=== PATIENT | female | born 1955 | race Caucasian/White ===

== ENCOUNTER 2020-10-23 16:47 | Inpatient (IN) | payer MEDICARE, OTHER ==
[~2020-10-23] VITALS: Ht 157.5 cm; Wt 49.4 kg
[2020-10-23 19:55] VITALS: BP 154/90
--- NOTE | 2020-10-23 19:55 | NUR ---
GPS RN-ADMISSION NOTES: ADMITTED A 65-YR OLD FEMALE, FROM [facility], ADMITTED ON 5150 FOR DTS. PER HOLD, PT APPEARED TEARFUL WHEN DISCUSSING THE ATTEMPT TO END HER LIFE. PT STATED, SHE INTENTIONALLY JUMPED INTO THE OCEAN WITH THE DESIRE TO END HER LIFE. PT STATED SHE IS AT RISK OF BECOMING HOMELESS AND LOSING HER MEDICAL. PATIENT REPORTEDLY FELT HOPELESS AND NO LONGER WANTED TO LIVE. UPON FACE TO FACE ASSESSMENT, PATIENT IS A/OX2-3, DEPRESSED, COOPERATIVE AND GUARDED. PT WAS ADVISED OF HER HOLD. PT'S RIGHTS HANDBOOK AND A GUIDE TO PRESCRIPTION MEDICATIONS GIVEN. IN NO APPARENT DISTRESS NOTED. BELONGINGS WERE INVENTORIED AND CHECKED FOR CONTRABAND. PT. IS UNDER THE PSYCHIATRIC CARE OF DR. SAAB ORDERS OBTAINED, AND UNDER THE MEDICAL CARE OF FRANCISCO J HERRERA. PT. REFUSED PNEUMONIA VACCINE WHEN OFFERED. PER PT. RECEIVED FLU VACCINE BUT FORGOT WHEN. SKIN BODY ASSESSMENT DONE. SKIN IS INTACT. DENIES PAIN/ DISCOMFORT AT THIS TIME. SAFETY PRECAUTIONS IN PLACE. BED LOCKED AND IN LOWEST POSITION. SIDE RAILS UP X2. WILL CONTINUE TO MONITOR Q15 MINS ROUNDS FOR SAFETY AND BEHAVIOR.
[2020-10-23] MEDS ORDERED: MAG HYDROX/AL HYDROX/SIMETH 30 ML UDC PO PRN (20:30)
[2020-10-23] MEDS ORDERED: BLOOD SUGAR DIAGNOSTIC 1 EACH STRIP IN ONE (20:30)
[2020-10-23 21:15] VITALS: BP 154/90
[2020-10-23] MEDS: ACETAMINOPHEN 325 MG TABLET PO PRN (21:26)
[2020-10-23] MEDS: TEMAZEPAM 7.5 MG CAPSULE PO PRN (21:41)
--- NOTE | 2020-10-23 21:41 | NUR ---
GPS-RN NOTES: INSOMNIA PATIENT C/O INABILITY TO SLEEP. ADMINISTERED RESTORIL 15MG PO ORDERED. WILL CONTINUE TO MONITOR.
[2020-10-23] MEDS ORDERED: INSU100V7 SQ (21:53)
[2020-10-23] MEDS ORDERED: INSU100V SQ (21:53)
[2020-10-23] MEDS ORDERED: INSU100I35 SQ (21:53)
[2020-10-23] MEDS ORDERED: TRAZ-252 PO (21:53)
[2020-10-23] MEDS ORDERED: METF-440 PO (21:53)
[2020-10-23] MEDS ORDERED: METFORMIN 500 MG TABLET PO SCH (22:30)
[2020-10-23] MEDS ORDERED: DEXTROSE 50%-WATER 50 ML DISP.SYRIN IV PRN (22:30)
[2020-10-23] MEDS: *INSULIN REGULAR(HUMULIN R)HUM 100 UNIT/ML VIAL SQ PRN (22:31)
[2020-10-24] MEDS: ACETAMINOPHEN 325 MG TABLET PO PRN (07:57)
[2020-10-24 08:00] VITALS: BP 134/72
[2020-10-24] MEDS: INSULIN ASPART/LISPRO 100 UNIT/ML CARTRIDGE SQ SCH ×3 (08:00→18:12)
[2020-10-24] MEDS: BLOOD SUGAR DIAGNOSTIC 1 EACH STRIP IN SCH ×4 (08:11→22:20)
[2020-10-24 08:55] LABS: ALBUMIN 3.4 g/dL (3.4-5.0); BILIRUBIN,TOTAL 0.3 mg/dL (0.2-1.0); CALCIUM, SERUM 9.4 mg/dL (8.5-10.1); CREATININE 0.7 mg/dL (0.6-1.3); POTASSIUM 4.1 mmol/L (3.5-5.1); TOTAL PROTEIN, SERUM 7.6 g/dL (6.4-8.2)
[2020-10-24] MEDS: INSULIN REGULAR, HUMAN 100 UNIT/ML 3 ML VIAL SQ PRN (13:26)
[2020-10-24 16:00] VITALS: BP 140/90
[2020-10-24] MEDS: INSULIN GLARGINE, 100 UNIT/ML CARTRIDGE SQ SCH (18:16)
[2020-10-24] MEDS: MAGNESIUM HYDROXIDE 30 ML UDC PO PRN (18:16)
--- NOTE | 2020-10-24 19:25 | NUR ---
RN NOTE PATIENT IN STABLE CONDITION. PATIENT SHOWS NO S/S OF HARM TO SELF OR OTHERS. PATIENT ATE WELL THROUGHOUT THE DAY. PATIENT SOCIALIZED WITH OTHERS IN THE MORNING, AND ISOLATED HERSELF THROUGHOUT THE AFTERNOON. PATIENT COMPLIANT WITH ALL MEDICATIONS. BED LOCKED IN LOWEST POSITION. ALL SAFETY MEASURES FOLLOWED. END RN NOTE. TERESO
[2020-10-24 20:05] VITALS: BP 161/85
[2020-10-24 20:48] VITALS: BP 161/85
[2020-10-24] MEDS: CEPHALEXIN MONOHYDRATE 500 MG CAPSULE PO SCH (20:56)
[2020-10-24 21:15] VITALS: BP 143/81
--- NOTE | 2020-10-24 22:20 | NUR ---
GPS RN NOTE: HYPOGLYCEMIA AT 2145, ROUTINE BS CHECK WAS DONE, PATIENT'S BLOOD SUGAR WAS 41, NO SYMPTOMS NOTED, PATIENT IS AWAKE, TALKATIVE. ORANGE JUICE GIVEN, PATIENT HAD PUDDING WELL & TOLERATED WELL. RECHECKED BS & IS 162 MG/DL NOW. DR. DAGMAR HERRERA NOTIFIED, MD ACKNOWLEDGED THE CONCERN & ADVISED TO CONTINUE TO MONITOR THE PATIENT FOR ANY CHANGE OF CONDITION. PATIENT IS STABLE NOW. SEEN BY DR. SAAB NOW WELL WITH NEW ORDERS. NOTED & CARRIED OUT. WILL CONTINUE TO MONITOR THE PATIENT CLOSELY.
[2020-10-24] MEDS ORDERED: TRAZODONE 50 MG TABLET PO SCH (22:30)
--- NOTE | 2020-10-24 22:40 | NUR ---
RN NOTE PATIENT'S BS IS 162, NO SLIDING SCALE COVERAGE GIVEN TO PREVENT HYPOGLYCEMIA. DR. LEAVITT MADE AWARE.
[2020-10-25] MEDS: INSULIN ASPART/LISPRO 100 UNIT/ML CARTRIDGE SQ SCH ×2 (07:30→12:59)
[2020-10-25] MEDS: BLOOD SUGAR DIAGNOSTIC 1 EACH STRIP IN SCH ×4 (07:38→21:33)
--- NOTE | 2020-10-25 07:39 | NUR ---
RN NOTE PATIENT'S BLOOD SUGAR IS 140 MG/DL. INFORMED AM RN THAT NO INSULIN WAS GIVEN TO THE PATIENT.
--- NOTE | 2020-10-25 07:53 | NUR ---
RN NOTE RECEIVED A CALL FROM PHARMACY TO CLARIFY TRAZODONE ORDER WITH . ENDORSED TO AM RN TO CLARIFY ORDER WITH DR. SAAB.
[2020-10-25 08:00] VITALS: BP 136/68
--- NOTE | 2020-10-25 09:20 | NUR ---
Family Contact: SW called the pts son, Dante ([phone]), but the phone number appears to be disconnected.
[2020-10-25] MEDS: CEPHALEXIN MONOHYDRATE 500 MG CAPSULE PO SCH ×2 (09:34→21:26)
[2020-10-25] MEDS: LORAZEPAM 0.5 MG TABLET PO PRN (09:35)
--- NOTE | 2020-10-25 09:56 | NUR ---
Initial Discharge Plan: Pt currently lives with a friend located at [address] [place] [address]; ([phone]). Per pt, she needs a placement. SW will work with the pt and the MD regarding appropriate discharge planning. SW will form a safe and proper discharge plan.
[2020-10-25 16:00] VITALS: BP 119/73
[2020-10-25] MEDS: INSULIN GLARGINE, 100 UNIT/ML CARTRIDGE SQ SCH (16:58)
--- NOTE | 2020-10-25 17:25 | NUR ---
RN NOTE PATIENT IN STABLE CONDITION. PATIENT SHOWS NO S/S OF HARM TO SELF OR OTHERS. PATIENT ATE WELL THROUGHOUT THE DAY. PATIENT SOCIALIZED WELL WITH OTHERS THROUGHOUT THE DAY. PATIENT REFUSED TO TAKE LANTUS TODAY DUE TO HYPOGLYCEMIC EPISODE THAT OCCURRED YESTERDAY EVENING. BED LOCKED IN LOWEST POSITION. ALL SAFETY MEASURES FOLLOWED. END RN NOTE. BN
[2020-10-25 20:00] VITALS: BP 141/79
[2020-10-25 20:34] VITALS: BP 141/79
[2020-10-25] MEDS: TRAZODONE 50 MG TABLET PO SCH (21:33)
--- NOTE | 2020-10-25 21:36 | NUR ---
GPS RN NOTE: REFUSED INSULIN PATIENT'S BS LEVEL IS 176 MG/DL BUT PATIENT REFUSED TO GET INSULIN PER SLIDING SCALE, STATED," IT IS ONLY 176, NOT TOO MUCH, I DON'T WANT ANY INSULIN." DESPITE OF EXPLANATIONS PT. CONTINUED TO REFUSE X Addendum: 10/25/20 at 2136 by MAGNUS CORONA RN PT. CONTINUED TO REFUSE X 3.
[2020-10-25] MEDS ORDERED: TRAZODONE 50 MG TABLET PO SCH ×2 (22:00)
--- NOTE | 2020-10-26 07:30 | NUR ---
RN NOTES PT IN BED, RESTING, AWAKE, ALERT AND VERBALLY RESPONSIVE, NO COMPLAINT OF PAIN, NOT IN DISTRESS, CALM AND COMPLIANT, BS CHECKED.
[2020-10-26 08:00] VITALS: BP 149/74
[2020-10-26] MEDS: CEPHALEXIN MONOHYDRATE 500 MG CAPSULE PO SCH ×2 (08:03→21:05)
[2020-10-26] MEDS: INSULIN REGULAR, HUMAN 100 UNIT/ML 3 ML VIAL SQ PRN ×3 (08:05→17:25)
[2020-10-26] MEDS: BLOOD SUGAR DIAGNOSTIC 1 EACH STRIP IN SCH ×4 (08:06→21:08)
[2020-10-26] MEDS: ESCITALOPRAM OXALATE (10 MG) 10 MG TABLET PO SCH (14:23)
[2020-10-26 16:00] VITALS: BP 143/79
[2020-10-26] MEDS: INSULIN GLARGINE, 100 UNIT/ML CARTRIDGE SQ SCH (17:31)
--- NOTE | 2020-10-26 18:03 | NUR ---
RN NOTES PT IN BED, AWAKE, ALERT AND VERBALLY RESPONSIVE, EATING DINNER, NO COMPLAINT AT THIS TIME, PREFERS TO STAY IN HER ROOM MOST OF THE TIME, COMPLIANT WITH MEDICATIONS, REFUSED LANTUS INSULIN, NEEDS ATTENDED, PM MEDS GIVEN.
[2020-10-26 20:25] VITALS: BP 150/97
[2020-10-26] MEDS: TRAZODONE 50 MG TABLET PO SCH (21:05)
--- NOTE | 2020-10-26 21:38 | NUR ---
RN NOTE PATIENT RECEIVED IN RESTING IN HER BED, PACES OCCASIONALLY IN HER ROOM, ABLE TO AMBULATE WITH A STEADY GAIT. SPEECH IS CLEAR, PT HAS A FLAT AFFECT, GUARDED, COOPERATIVE AND COMPLIANT WITH MEDICATIONS. DENIES ANY PAIN OR DISCOMFORT, BREATHING IS UNLABORED AND EVEN.PT HAS NO NEEDS AT THIS TIME, EDUCATED ON THE USE OF THE CALL LIGHT, SIDE RAILS UP X2 FOR SAFETY, BED LOCKED AND IN LOWEST POSITION. WILL CONTINUE MONITORING Q15 MIN WITH THE HELP OF STAFF TO MAINTAIN SAFETY.
[2020-10-26] MEDS: *INSULIN REGULAR(HUMULIN R)HUM 100 UNIT/ML VIAL SQ PRN (23:10)
[2020-10-27 08:00] VITALS: BP 145/77
[2020-10-27] MEDS: ESCITALOPRAM OXALATE (10 MG) 10 MG TABLET PO SCH (08:11)
[2020-10-27] MEDS: CEPHALEXIN MONOHYDRATE 500 MG CAPSULE PO SCH ×2 (08:11→20:52)
[2020-10-27] MEDS: INSULIN REGULAR, HUMAN 100 UNIT/ML 3 ML VIAL SQ PRN ×2 (09:19→12:58)
[2020-10-27] MEDS: BLOOD SUGAR DIAGNOSTIC 1 EACH STRIP IN SCH ×4 (09:27→21:32)
[2020-10-27] MEDS: MAGNESIUM HYDROXIDE 30 ML UDC PO PRN (12:12)
[2020-10-27 16:00] VITALS: BP 130/78
[2020-10-27] MEDS: METFORMIN 500 MG TABLET PO SCH (17:33)
[2020-10-27] MEDS: INSULIN GLARGINE, 100 UNIT/ML CARTRIDGE SQ SCH (17:44)
[2020-10-27] MEDS: TRAZODONE 50 MG TABLET PO SCH (21:03)
[2020-10-27] MEDS: *INSULIN REGULAR(HUMULIN R)HUM 100 UNIT/ML VIAL SQ PRN (21:22)
[2020-10-28 08:00] VITALS: BP 140/82
[2020-10-28] MEDS: BLOOD SUGAR DIAGNOSTIC 1 EACH STRIP IN SCH ×4 (08:18→20:58)
[2020-10-28] MEDS: CEPHALEXIN MONOHYDRATE 500 MG CAPSULE PO SCH ×2 (09:19→20:49)
[2020-10-28] MEDS: METFORMIN 500 MG TABLET PO SCH ×2 (09:19→17:06)
[2020-10-28] MEDS: ESCITALOPRAM OXALATE (10 MG) 10 MG TABLET PO SCH (09:20)
--- NOTE | 2020-10-28 11:08 | NUR ---
Family Contact: SW called the pts son, Dante ([phone]), who stated that he is concerned about the pts medi-taina services being cancelled so the SW stated that he can talk to the intake department. SW stated that she did want to discuss the pts discharge plan and informed him that the pt may need to be placed in a facility. Pts son was open to the suggestion and SW stated that she will start sending out referrals.
--- NOTE | 2020-10-28 12:49 | NUR ---
SNF Referral: SW faxed a assisted facility referral to the following two facilities: [facility] with attn to [facility]: [phone] [facility] with attn Meliza: [phone]
--- NOTE | 2020-10-28 14:25 | NUR ---
SNF Contact: Meliza ([phone]) at [facility] contacted the SW and stated that the pt was accepted to their facility.
[2020-10-28 16:00] VITALS: BP 149/88
[2020-10-28] MEDS: INSULIN GLARGINE, 100 UNIT/ML CARTRIDGE SQ SCH (17:07)
--- NOTE | 2020-10-28 19:26 | NUR ---
PT RECEIVED IN BED. AXO3, REEVES AND RESPIRATIONS EVEN AND UNLABORED. DENIES SI AND HI. NO S/S OF ACUTE DISTRESS. SAFETY MAINTAINED. WILL CONTINUE TO MONITOR.
[2020-10-28 20:13] VITALS: BP 157/92
[2020-10-28] MEDS: TRAZODONE 50 MG TABLET PO SCH (20:48)
[2020-10-28] MEDS: INSULIN REGULAR, HUMAN 100 UNIT/ML 3 ML VIAL SQ PRN (21:03)
--- NOTE | 2020-10-29 07:00 | NUR ---
PT AOX4, VERY QUITE, CALM AND COOPERATIVE. COMPLIANT WITH MEDS. BLOOD SUGAR 250 AND GIVEN 4U OF INSULIN PER SLIDING SCALE. DENIES SI AND HI. SAFETY MAINTAINED. FREE OF INJURY
[2020-10-29 08:00] VITALS: BP 155/80
[2020-10-29] MEDS: BLOOD SUGAR DIAGNOSTIC 1 EACH STRIP IN SCH ×4 (08:15→22:47)
[2020-10-29] MEDS: INSULIN REGULAR, HUMAN 100 UNIT/ML 3 ML VIAL SQ PRN ×2 (08:27→12:24)
[2020-10-29] MEDS: CEPHALEXIN MONOHYDRATE 500 MG CAPSULE PO SCH ×2 (08:29→21:16)
[2020-10-29] MEDS: METFORMIN 500 MG TABLET PO SCH ×2 (08:29→17:23)
[2020-10-29] MEDS: ESCITALOPRAM OXALATE (10 MG) 10 MG TABLET PO SCH (08:30)
--- NOTE | 2020-10-29 09:03 | NUR ---
SNF Contact: Urban ([phone]) at [facility] called the SW and stated that the pt was accepted to their facility.
--- NOTE | 2020-10-29 10:49 | NUR ---
Probable Cause Hearing: Pts [id number] hold was upheld for grave disability.
[2020-10-29 16:00] VITALS: BP 150/85
[2020-10-29] MEDS: INSULIN GLARGINE, 100 UNIT/ML CARTRIDGE SQ SCH (17:17)
--- NOTE | 2020-10-29 19:21 | NUR ---
PT RECEIVED SITING IN A CHAIR IN THE [place]. APPEARS DEPRESSED, EYES TEARFUL AND STATES " I FEEL SAD" DENIES SI AND HI. STATES " I DON'T WANT TO HURT MYSELF". RESPIRATIONS EVEN AND UNLABORED. DENIES PAIN AND DISCOMFORT WILL CLOSELY MONITOR.
[2020-10-29 19:54] VITALS: BP 146/77
[2020-10-29] MEDS: TRAZODONE 50 MG TABLET PO SCH (21:16)
--- NOTE | 2020-10-30 05:49 | NUR ---
PT AOX3, REEVES, AMBULATES IN THE HALLS WITH A STEADY GATE. PT WAS TEARFUL AND DEPRESSED THROUGH OUT THE NIGHT. ASKED SHE WOULD LIKE TO CALL FAMILY. STATED SHE WILL CALL HER SON IN THE AM. OFFERED FOOD AND DRINKS. ALL NEEDS MET. DENIES PAIN AND DISCOMFORT. DENIES SI AND HI. PT COMMUNICATES WELL WITH STAFF AND PATIENTS. DENIES PAIN AND DISCOMFORT. BLOOD SUGAR WAS 218 AND REFUSED INSULIN. SAFETY MAINTAINED AND FREE OF INJURY.
[2020-10-30 07:08] LABS: BASOPHILS # (AUTO) 0.1 /CMM (0.0-0.2); BASOPHILS % (AUTO) 1.1 % (0.0-2.0); EOSINOPHILS % (AUTO) 2.2 % (0.0-6.0); HEMATOCRIT 41 % (33-45); HEMOGLOBIN 13.9 g/dL (11.5-14.8); LYMPHOCYTES # (AUTO) 2.6 /CMM (0.8-4.8); MEAN CORPUSCULAR HGB CONC 34 g/dl (31.0-36.0); MEAN CORPUSCULAR VOLUME 89 fL (82-100); MONOCYTES # (AUTO) 0.6 /CMM (0.1-1.30); MONOCYTES % (AUTO) 7.7 % (2.0-12.0); PLATELET COUNT (AUTO) 284 /CMM (150-450); RED BLOOD CELL COUNT(AUTO) 4.63 MIL/uL (4.0-5.2); WHITE BLOOD COUNT (AUTO) 7.3 K/uL (4.3-11.0)
[2020-10-30 07:26] LABS: CREATININE 0.8 mg/dL (0.6-1.3)
[2020-10-30 08:00] VITALS: BP 145/91
[2020-10-30] MEDS: ESCITALOPRAM OXALATE (10 MG) 10 MG TABLET PO SCH (08:35)
[2020-10-30] MEDS: METFORMIN 500 MG TABLET PO SCH ×2 (08:35→17:25)
[2020-10-30] MEDS: BLOOD SUGAR DIAGNOSTIC 1 EACH STRIP IN SCH ×4 (08:46→21:38)
[2020-10-30] MEDS: *INSULIN REGULAR(HUMULIN R)HUM 100 UNIT/ML VIAL SQ PRN (08:51)
[2020-10-30] MEDS: INSULIN REGULAR, HUMAN 100 UNIT/ML 3 ML VIAL SQ PRN (12:12)
[2020-10-30 16:00] VITALS: BP 122/73
[2020-10-30] MEDS: INSULIN GLARGINE, 100 UNIT/ML CARTRIDGE SQ SCH (17:42)
[2020-10-30 20:00] VITALS: BP 132/84
[2020-10-30 20:16] VITALS: BP 132/84
[2020-10-30] MEDS: ATORVASTATIN 10 MG TABLET PO SCH (21:38)
[2020-10-30] MEDS: TRAZODONE 50 MG TABLET PO SCH (21:38)
[2020-10-30] MEDS: TEMAZEPAM 7.5 MG CAPSULE PO PRN (21:45)
--- NOTE | 2020-10-30 22:00 | NUR ---
RN NOTES BLOOD SUGAR- 144 , PT REFUSED INSULIN COVERAGE
[2020-10-31 08:00] VITALS: BP 97/69
[2020-10-31] MEDS: BLOOD SUGAR DIAGNOSTIC 1 EACH STRIP IN SCH ×4 (08:01→21:42)
[2020-10-31] MEDS: INSULIN REGULAR, HUMAN 100 UNIT/ML 3 ML VIAL SQ PRN ×2 (08:02→12:32)
[2020-10-31] MEDS: ESCITALOPRAM OXALATE (10 MG) 10 MG TABLET PO SCH (08:06)
[2020-10-31] MEDS: METFORMIN 500 MG TABLET PO SCH ×2 (08:06→16:49)
[2020-10-31] MEDS: LISINOPRIL (5MG) 5 MG TABLET PO SCH (09:00)
[2020-10-31 16:00] VITALS: BP 130/75
[2020-10-31] MEDS: INSULIN GLARGINE, 100 UNIT/ML CARTRIDGE SQ SCH (18:00)
[2020-10-31 19:57] VITALS: BP 135/85
[2020-10-31] MEDS: TRAZODONE 50 MG TABLET PO SCH (21:35)
[2020-10-31] MEDS: ATORVASTATIN 10 MG TABLET PO SCH (21:35)
--- NOTE | 2020-10-31 21:43 | NUR ---
PATIENT'S BLOOD SUGAR 161, PATIENT REFUSED INSULIN COVERAGE. COMPLIANT WITH THE REST OF HER MEDICATIONS. WILL CONTINUE MONITORING CLOSELY.
--- NOTE | 2020-11-01 06:18 | NUR ---
PATIENT SLEPT FOR 9 HOURS, RESTING IN BED AT THIS TIME, NO APPARENT DISTRESS. SAFETY PRECAUTIONS IN PLACE, WILL CONTINUE MONITORING CLOSELY.
[2020-11-01 08:00] VITALS: BP 104/57
[2020-11-01] MEDS: BLOOD SUGAR DIAGNOSTIC 1 EACH STRIP IN SCH ×4 (08:00→21:35)
[2020-11-01] MEDS: INSULIN REGULAR, HUMAN 100 UNIT/ML 3 ML VIAL SQ PRN (08:19)
[2020-11-01] MEDS: ESCITALOPRAM OXALATE (10 MG) 10 MG TABLET PO SCH (08:31)
[2020-11-01] MEDS: METFORMIN 500 MG TABLET PO SCH ×2 (08:31→16:18)
[2020-11-01] MEDS: *INSULIN REGULAR(HUMULIN R)HUM 100 UNIT/ML VIAL SQ PRN ×3 (12:02→21:31)
[2020-11-01] MEDS: LORAZEPAM 0.5 MG TABLET PO PRN (15:10)
[2020-11-01 16:00] VITALS: BP 154/80
[2020-11-01] MEDS: LISINOPRIL (5MG) 5 MG TABLET PO SCH (16:16)
[2020-11-01] MEDS: INSULIN GLARGINE, 100 UNIT/ML CARTRIDGE SQ SCH (18:00)
[2020-11-01 20:44] VITALS: BP 130/75
[2020-11-01] MEDS: ATORVASTATIN 10 MG TABLET PO SCH (21:16)
[2020-11-01] MEDS: TRAZODONE 50 MG TABLET PO SCH (21:16)
[2020-11-02] MEDS: BLOOD SUGAR DIAGNOSTIC 1 EACH STRIP IN SCH ×4 (07:33→21:42)
[2020-11-02 08:00] VITALS: BP 124/67
[2020-11-02] MEDS: ESCITALOPRAM OXALATE (10 MG) 10 MG TABLET PO SCH (08:32)
[2020-11-02] MEDS: METFORMIN 500 MG TABLET PO SCH ×2 (08:32→16:28)
[2020-11-02] MEDS: INSULIN REGULAR, HUMAN 100 UNIT/ML 3 ML VIAL SQ PRN ×3 (08:32→17:28)
[2020-11-02] MEDS: LISINOPRIL (5MG) 5 MG TABLET PO SCH (08:34)
[2020-11-02] MEDS: SERTRALINE HCL 50 MG TABLET PO SCH (08:35)
[2020-11-02 16:00] VITALS: BP 119/71
[2020-11-02] MEDS: INSULIN GLARGINE, 100 UNIT/ML CARTRIDGE SQ SCH (17:29)
--- NOTE | 2020-11-02 17:31 | NUR ---
BS is 131 pt. agreed for Humulin R 2 units SQ and refused for the Lantus of 38 units. Explained on the importance and still refusing and said I only want 1 the Humulin R.
[2020-11-02 20:12] VITALS: BP 114/75
[2020-11-02] MEDS: ATORVASTATIN 10 MG TABLET PO SCH (21:41)
[2020-11-02] MEDS: TRAZODONE 50 MG TABLET PO SCH (21:41)
[2020-11-02] MEDS: *INSULIN REGULAR(HUMULIN R)HUM 100 UNIT/ML VIAL SQ PRN (21:49)
[2020-11-03 08:00] VITALS: BP 98/58
[2020-11-03] MEDS: METFORMIN 500 MG TABLET PO SCH ×2 (08:05→17:21)
[2020-11-03] MEDS: SERTRALINE HCL 50 MG TABLET PO SCH (08:05)
[2020-11-03] MEDS: ESCITALOPRAM OXALATE (10 MG) 10 MG TABLET PO SCH (08:05)
[2020-11-03] MEDS: LISINOPRIL (5MG) 5 MG TABLET PO SCH (08:05)
[2020-11-03] MEDS: BLOOD SUGAR DIAGNOSTIC 1 EACH STRIP IN SCH ×4 (08:08→21:42)
[2020-11-03] MEDS: *INSULIN REGULAR(HUMULIN R)HUM 100 UNIT/ML VIAL SQ PRN (08:08)
[2020-11-03] MEDS: INSULIN REGULAR, HUMAN 100 UNIT/ML 3 ML VIAL SQ PRN ×2 (12:13→17:23)
[2020-11-03 16:00] VITALS: BP 102/56
[2020-11-03 20:10] VITALS: BP 113/70
[2020-11-03] MEDS: INSULIN GLARGINE, 100 UNIT/ML CARTRIDGE SQ SCH (21:46)
[2020-11-03] MEDS: TRAZODONE 50 MG TABLET PO SCH (21:47)
[2020-11-03] MEDS: ATORVASTATIN 10 MG TABLET PO SCH (21:49)
[2020-11-04] MEDS: BLOOD SUGAR DIAGNOSTIC 1 EACH STRIP IN SCH ×4 (07:34→21:37)
[2020-11-04 08:00] VITALS: BP 109/56
[2020-11-04] MEDS: LISINOPRIL (5MG) 5 MG TABLET PO SCH (08:41)
[2020-11-04] MEDS: SERTRALINE HCL 50 MG TABLET PO SCH (08:44)
[2020-11-04] MEDS: ESCITALOPRAM OXALATE (10 MG) 10 MG TABLET PO SCH (08:44)
[2020-11-04] MEDS: METFORMIN 500 MG TABLET PO SCH ×2 (08:44→16:25)
--- NOTE | 2020-11-04 11:41 | NUR ---
GPS RN NOTES 1200 ACCU-CHECK WITH BS 151. PATIENT REFUSES INSULIN.
[2020-11-04 16:00] VITALS: BP 105/67
[2020-11-04] MEDS: INSULIN REGULAR, HUMAN 100 UNIT/ML 3 ML VIAL SQ PRN ×2 (17:31→21:33)
--- NOTE | 2020-11-04 18:48 | NUR ---
GPS RN NOTES PATIENT AWAKE, QUITE IN HER ROOM, READING A BOOK. PATIENT MED COMPLIANT.
[2020-11-04 20:46] VITALS: BP 134/64
[2020-11-04] MEDS: TRAZODONE 50 MG TABLET PO SCH (21:28)
[2020-11-04] MEDS: ATORVASTATIN 10 MG TABLET PO SCH (21:28)
[2020-11-04] MEDS: INSULIN GLARGINE, 100 UNIT/ML CARTRIDGE SQ SCH (21:38)
--- NOTE | 2020-11-05 06:25 | NUR ---
PT SLEPT FOR ABOUT 9 HOURS, COMPLIANT WITH ALL MEDICATIONS EXCEPT LANTUS. AGREED TO TAKE 2 UNITS OF HUMULIN R FOR BLOOD SUGAR OF 146. RESTING IN HER BED AT THIS TIME, IN NO APPARENT DISTRESS. SAFETY PRECAUTIONS IN PLACE. WILL CONTINUE MONITORING CLOSELY.
--- NOTE | 2020-11-05 07:40 | NUR ---
ms everardo bs-[id number]- refused coverage, will monitor patient's bs.
[2020-11-05 08:00] VITALS: BP 109/69
[2020-11-05] MEDS: SERTRALINE HCL 50 MG TABLET PO SCH (08:19)
[2020-11-05] MEDS: ESCITALOPRAM OXALATE (10 MG) 10 MG TABLET PO SCH (08:19)
[2020-11-05] MEDS: BLOOD SUGAR DIAGNOSTIC 1 EACH STRIP IN SCH ×4 (08:19→21:44)
[2020-11-05] MEDS: LISINOPRIL (5MG) 5 MG TABLET PO SCH (08:20)
[2020-11-05] MEDS: METFORMIN 500 MG TABLET PO SCH ×2 (08:20→17:10)
[2020-11-05] MEDS: INSULIN REGULAR, HUMAN 100 UNIT/ML 3 ML VIAL SQ PRN (12:09)
[2020-11-05 16:00] VITALS: BP 100/56
[2020-11-05] MEDS: TRAZODONE 50 MG TABLET PO SCH (21:39)
[2020-11-05] MEDS: ATORVASTATIN 10 MG TABLET PO SCH (21:39)
[2020-11-05] MEDS: *INSULIN REGULAR(HUMULIN R)HUM 100 UNIT/ML VIAL SQ PRN (21:48)
[2020-11-05] MEDS: INSULIN GLARGINE, 100 UNIT/ML CARTRIDGE SQ SCH (21:51)
[2020-11-06 04:01] VITALS: BP 119/63
[2020-11-06 04:41] VITALS: BP 119/63
--- NOTE | 2020-11-06 06:27 | NUR ---
PT SLEPT FOR ABOUT 9 HOURS, COMPLIANT WITH ALL MEDICATIONS EXCEPT LANTUS. AGREED TO TAKE 2 UNITS OF HUMULIN R FOR BLOOD SUGAR OF 157. PT REMAINS WITHDRAWN AND ISOLATIVE. NO VOICED NEEDS AT THIS TIME, IN NO APPARENT DISTRESS. SAFETY PRECAUTIONS IN PLACE. WILL CONTINUE MONITORING CLOSELY.
[2020-11-06] MEDS: BLOOD SUGAR DIAGNOSTIC 1 EACH STRIP IN SCH ×4 (07:34→21:45)
[2020-11-06 08:00] VITALS: BP 98/68
[2020-11-06] MEDS: METFORMIN 500 MG TABLET PO SCH ×2 (08:14→16:05)
[2020-11-06] MEDS: ESCITALOPRAM OXALATE (10 MG) 10 MG TABLET PO SCH (08:14)
[2020-11-06] MEDS: LISINOPRIL (5MG) 5 MG TABLET PO SCH (08:15)
[2020-11-06] MEDS: INSULIN REGULAR, HUMAN 100 UNIT/ML 3 ML VIAL SQ PRN ×2 (11:40→16:58)
[2020-11-06] MEDS: SERTRALINE HCL 50 MG TABLET PO SCH (11:41)
[2020-11-06 16:00] VITALS: BP 107/66
--- NOTE | 2020-11-06 16:26 | NUR ---
RN NOTE PATIENT REMAINED IN BED ALL SHIFT, DECLINE UNIT ACTIVITIES. DENIES SI/HI, AUDITORY OR VISUAL HALLUCINATIONS WHEN ASKED. ASKED IF THERE IS ANYTHING STAFF COULD DO OR SOMETHING SHE WOULD LIKE-"NO THANK YOU."SHE APPEARS DEPRESSED, WITHDRAWN AND ISOLATIVE. ONLY RESPONDS WHEN ENGAGED. COMPLIANT WITH PO MEDS. REFUSED A.M INSULIN COVERAGE BS 166. ACCEPTS SNACKS/BEVERAGE WHEN OFFERED. WILL CONTINUE TO MONITOR CLOSELY.
[2020-11-06 20:00] VITALS: BP 130/77
[2020-11-06] MEDS: ATORVASTATIN 10 MG TABLET PO SCH (21:46)
[2020-11-06] MEDS: TEMAZEPAM 7.5 MG CAPSULE PO PRN (21:46)
[2020-11-06] MEDS: TRAZODONE 50 MG TABLET PO SCH (21:46)
[2020-11-06] MEDS: INSULIN GLARGINE, 100 UNIT/ML CARTRIDGE SQ SCH (21:48)
[2020-11-06] MEDS: *INSULIN REGULAR(HUMULIN R)HUM 100 UNIT/ML VIAL SQ PRN (21:50)
[2020-11-07] MEDS: BLOOD SUGAR DIAGNOSTIC 1 EACH STRIP IN SCH ×4 (07:48→21:21)
[2020-11-07] MEDS: *INSULIN REGULAR(HUMULIN R)HUM 100 UNIT/ML VIAL SQ PRN (07:54)
[2020-11-07 08:00] VITALS: BP 115/63
[2020-11-07] MEDS: LISINOPRIL (5MG) 5 MG TABLET PO SCH (08:40)
[2020-11-07] MEDS: METFORMIN 500 MG TABLET PO SCH ×2 (08:40→16:05)
[2020-11-07] MEDS: ESCITALOPRAM OXALATE (10 MG) 10 MG TABLET PO SCH (08:40)
[2020-11-07] MEDS: SERTRALINE HCL 50 MG TABLET PO SCH (08:40)
--- NOTE | 2020-11-07 10:36 | NUR ---
Family Contact: SW called the pts son, Dante ([phone]), and informed him that the pt is going to be discharged the following day to [facility] and provided him with the facility information.
--- NOTE | 2020-11-07 11:21 | NUR ---
Family Contact: SW called the pts son, Dante ([phone]), and informed him that the pts discharge was cancelled as she appears to be depressed and does not want to talk to anyone including him.
[2020-11-07] MEDS: INSULIN REGULAR, HUMAN 100 UNIT/ML 3 ML VIAL SQ PRN ×2 (11:40→16:56)
[2020-11-07 16:00] VITALS: BP 120/65
[2020-11-07 20:42] VITALS: BP 118/68
[2020-11-07] MEDS: TRAZODONE 50 MG TABLET PO SCH (21:07)
[2020-11-07] MEDS: ATORVASTATIN 10 MG TABLET PO SCH (21:07)
[2020-11-07] MEDS: INSULIN GLARGINE, 100 UNIT/ML CARTRIDGE SQ SCH (21:22)
--- NOTE | 2020-11-07 21:24 | NUR ---
RN NOTES: PT. REFUSED LANTUS 30 UNITS , PER PT. PT. IDONT WANT TAKE, MY BLOOD SUGAR WILL DROP , WILL CONTINUTY WITH CARE.
[2020-11-08] MEDS: BLOOD SUGAR DIAGNOSTIC 1 EACH STRIP IN SCH ×4 (07:29→21:27)
[2020-11-08] MEDS: INSULIN REGULAR, HUMAN 100 UNIT/ML 3 ML VIAL SQ PRN ×2 (07:36→16:44)
[2020-11-08] MEDS: ESCITALOPRAM OXALATE (10 MG) 10 MG TABLET PO SCH (08:22)
[2020-11-08] MEDS: METFORMIN 500 MG TABLET PO SCH ×2 (08:22→16:03)
[2020-11-08] MEDS: SERTRALINE HCL 50 MG TABLET PO SCH (08:22)
[2020-11-08] MEDS: LISINOPRIL (5MG) 5 MG TABLET PO SCH (08:22)
[2020-11-08 09:41] VITALS: BP 121/63
--- NOTE | 2020-11-08 15:03 | NUR ---
Family Contact: Pts son, Dante ([phone]), called the SW and asked if there were any facilities in the [facility] that the pt can be discharged to. PILAR mentioned two and the pts son stated that he would like the to send a referral to [facility]. PILAR stated that she will and will keep him updated.
--- NOTE | 2020-11-08 15:05 | NUR ---
SNF Referral: PILAR faxed a snf referral to [facility] with attn to Farideh to the fax number: [phone].
[2020-11-08 16:16] VITALS: BP 121/78
[2020-11-08 20:16] VITALS: BP 139/79
[2020-11-08] MEDS: TRAZODONE 50 MG TABLET PO SCH (21:17)
[2020-11-08] MEDS: ATORVASTATIN 10 MG TABLET PO SCH (21:17)
[2020-11-08] MEDS: *INSULIN REGULAR(HUMULIN R)HUM 100 UNIT/ML VIAL SQ PRN (21:28)
[2020-11-08] MEDS: INSULIN GLARGINE, 100 UNIT/ML CARTRIDGE SQ SCH (22:00)
--- NOTE | 2020-11-08 22:02 | NUR ---
RN NOTES: PT. REFUSED LANTUS 30 UNITS , PER PT. PT. I DONT WANT TAKE, MY BLOOD SUGAR WILL DROP VERY EASILY , WILL CONTINUTY WITH CARE.
--- NOTE | 2020-11-09 06:31 | NUR ---
RN NOTES: PT. RESTING WELL IN HER ROOM, CALM COOPERTIVE AT THIS TIME , DENIES ANY PAIN/ DISCOMFORT AT THIS TIME, NO ACUTE DISTRESS NOTED , ENDORSE TO AM NURSE OR CONTINUITY WITH CARE.
[2020-11-09] MEDS: BLOOD SUGAR DIAGNOSTIC 1 EACH STRIP IN SCH ×4 (07:25→22:31)
--- NOTE | 2020-11-09 07:33 | NUR ---
RN NOTES: PT. BLOOD SUGAR CHECK AND BLOOD SUGAR 182 MG/DL AND ENDORSE TO AM NURSE FOR INSULLIN COVERAGE AND, ENDORSE TO AM NURSE FOR CONTINUITY CARE.
[2020-11-09] MEDS: METFORMIN 500 MG TABLET PO SCH ×2 (08:29→16:45)
[2020-11-09] MEDS: ESCITALOPRAM OXALATE (10 MG) 10 MG TABLET PO SCH (08:29)
[2020-11-09] MEDS: SERTRALINE HCL 50 MG TABLET PO SCH (08:29)
[2020-11-09 08:30] VITALS: BP 122/75
[2020-11-09] MEDS: LISINOPRIL (5MG) 5 MG TABLET PO SCH (08:30)
[2020-11-09] MEDS: INSULIN REGULAR, HUMAN 100 UNIT/ML 3 ML VIAL SQ PRN ×2 (08:32→16:55)
[2020-11-09 16:00] VITALS: BP 127/70
[2020-11-09 20:06] VITALS: BP 135/76
[2020-11-09] MEDS: INSULIN GLARGINE, 100 UNIT/ML CARTRIDGE SQ SCH (22:00)
[2020-11-09] MEDS: ATORVASTATIN 10 MG TABLET PO SCH (22:20)
[2020-11-09] MEDS: TRAZODONE 50 MG TABLET PO SCH (22:20)
--- NOTE | 2020-11-09 22:45 | NUR ---
RN NOTES PATIENT BS NOTED AT 169. PATIENT STATED SHE DID NOT WANT INSULIN OR LANTUS TO BE GIVEN FOR TONIGHT. RISK AND BENEFITS HAVE BEEN EXPLAINED TO PATIENT. WILL CONTINUE TO MONITOR.
--- NOTE | 2020-11-10 04:00 | NUR ---
RN NOTES PATIENT UNABLE TO SLEEP. DOES NOT WANT SLEEPING AID DURING SHIFT. PATIENT SITTING AT EDGE OF BED. PATIENT IN NO SIGNS OF ACUTE DISTRESS. WILL CONTINUE TO MONITOR, SAFETY MEASURES ARE IN PLACE, BED IS LOCKED AND PLACED IN THE LOW POSITION.
[2020-11-10] MEDS: BLOOD SUGAR DIAGNOSTIC 1 EACH STRIP IN SCH ×4 (07:53→21:23)
[2020-11-10 08:00] VITALS: BP 138/63
[2020-11-10] MEDS: INSULIN REGULAR, HUMAN 100 UNIT/ML 3 ML VIAL SQ PRN ×2 (08:00→11:44)
[2020-11-10] MEDS: METFORMIN 500 MG TABLET PO SCH ×2 (08:52→17:00)
[2020-11-10] MEDS: ESCITALOPRAM OXALATE (10 MG) 10 MG TABLET PO SCH (08:52)
[2020-11-10] MEDS: LISINOPRIL (5MG) 5 MG TABLET PO SCH (08:52)
[2020-11-10] MEDS: SERTRALINE HCL 50 MG TABLET PO SCH (08:52)
--- NOTE | 2020-11-10 08:57 | NUR ---
RN-CO: PT REFUSED ALL PO MEDS.NOTED PT IS VERY UNMOTIVATED.
--- NOTE | 2020-11-10 11:53 | NUR ---
RN-CO: PT REFUSED BREAKFAST, LUNCH AND ALL MEDS EXCEPT BLOOD SUGAR.
[2020-11-10 16:00] VITALS: BP 146/90
[2020-11-10] MEDS: TRAZODONE 50 MG TABLET PO SCH (21:03)
[2020-11-10] MEDS: ATORVASTATIN 10 MG TABLET PO SCH (21:03)
[2020-11-10] MEDS: INSULIN GLARGINE, 100 UNIT/ML CARTRIDGE SQ SCH (21:26)
[2020-11-10] MEDS: *INSULIN REGULAR(HUMULIN R)HUM 100 UNIT/ML VIAL SQ PRN (21:28)
[2020-11-10 21:33] VITALS: BP 153/77
[2020-11-11] MEDS: BLOOD SUGAR DIAGNOSTIC 1 EACH STRIP IN SCH ×4 (07:45→22:03)
[2020-11-11] MEDS: INSULIN REGULAR, HUMAN 100 UNIT/ML 3 ML VIAL SQ PRN ×3 (07:49→16:46)
[2020-11-11 08:00] VITALS: BP 116/68
--- NOTE | 2020-11-11 08:44 | NUR ---
Social Service phone call: PILAR spoke with the son ( Dante Ayala-[phone]) via phone regarding acceptance at [facility] ([phone]). SW called [facility] ([phone]) called to verify and RN stated Admission equal opportunity representative is not in the office and she have the person return phone call. SW notified the son regarding current status and will follow up. Plan: PILAR will follow up with [facility] ([phone]) and the (Dante Ayala-[phone])
[2020-11-11] MEDS: METFORMIN 500 MG TABLET PO SCH ×2 (08:45→16:44)
[2020-11-11] MEDS: LISINOPRIL (5MG) 5 MG TABLET PO SCH (08:46)
[2020-11-11] MEDS: ESCITALOPRAM OXALATE (10 MG) 10 MG TABLET PO SCH (08:46)
[2020-11-11] MEDS: SERTRALINE HCL 50 MG TABLET PO SCH (08:49)
--- NOTE | 2020-11-11 09:00 | NUR ---
RN NOTE- PT ALERT ORIENTED CONFUSED MED COMPLIANT NO BEHAVIORAL ISSUESLIKE REPORTED YESTERDAY CALM DIRECTABLE PO INTAKE GOOD DENIES ALL ISOLATIVE FLAT AFFECT
--- NOTE | 2020-11-11 11:15 | NUR ---
Social Service Phone call. SW spoke to Licha (Admissions, [facility], [address], [place] [address], ) and verified acceptance for the pt.
--- NOTE | 2020-11-11 11:25 | NUR ---
Pump Mechanic Phone Call SW spoke to the son Barrett ([phone]) regarding the pt being accepted at [facility], [address], [place]. [address], .
[2020-11-11] MEDS: LORAZEPAM 0.5 MG TABLET PO PRN (15:47)
--- NOTE | 2020-11-11 15:47 | NUR ---
RN NOTE- PT PACING ANXIOUS RESTLESS TEARFUL. ATIVAN 1 MG GIVEN
[2020-11-11 16:00] VITALS: BP 117/70
--- NOTE | 2020-11-11 16:25 | NUR ---
Individual Therapy: SW met with pt. bedside to conduct individual therapy regarding Positive Coping Mechanisms. However, pt. is restless, shaking and SW unable to engage pt. in meaningful conversation. Patient is Greenlandic speaking and stated"I lost my job, I lost everything". SW attempted to engage with pt. However, pt. with no response and could not elaborate. Patient is not ready for therapy at this time. Per nurse. Pt. was medicated 45 minutes ago. SW will continue attempt to provide individual therapy.
[2020-11-11 20:32] VITALS: BP 128/81
[2020-11-11] MEDS: ATORVASTATIN 10 MG TABLET PO SCH (21:53)
[2020-11-11] MEDS: TRAZODONE 50 MG TABLET PO SCH (21:53)
[2020-11-11] MEDS: INSULIN GLARGINE, 100 UNIT/ML CARTRIDGE SQ SCH (22:00)
[2020-11-11] MEDS: *INSULIN REGULAR(HUMULIN R)HUM 100 UNIT/ML VIAL SQ PRN (22:01)
--- NOTE | 2020-11-11 22:41 | NUR ---
RN NOTES PATIENT BLOOD SUGAR NOTED AT 176. PATIENT STATED SHE DID NOT WANT LANTUS TO BE GIVEN FOR TONIGHT. PER PT. MY BLOOD SUGAR WILL DROP EASILY, RISK AND BENEFITS HAVE BEEN EXPLAINED TO PATIENT. WILL CONTINUE TO MONITOR.
[2020-11-12] MEDS: BLOOD SUGAR DIAGNOSTIC 1 EACH STRIP IN SCH ×2 (07:53→12:46)
[2020-11-12] MEDS: INSULIN REGULAR, HUMAN 100 UNIT/ML 3 ML VIAL SQ PRN (07:58)
[2020-11-12 08:00] VITALS: BP 128/71
--- NOTE | 2020-11-12 09:00 | NUR ---
received pt. this am,a/o x2-3. mainly azerbaijani speaking.med compliant.
--- NOTE | 2020-11-12 09:26 | NUR ---
Discharge Note: Pt will be discharged to [facility], [address] [place]. [address], . SW informed pts son, Barrett ([phone]), of the placement. Pt will be transported via [id number] at 1PM. Upon discharge, the pt appears to be alert and oriented x4 (time, place, and self). Pt appears to be in a depressed mood and presents with a calm mood. Pt denies both suicidal and homicidal ideation as well as auditory and visual hallucinations. Pt appears to be ambulatory with an unsteady gait. Pt appears to be well groomed and appropriately dressed. Pt will continue to be under the care of her psychiatrist, Dr. Lee, located at [address] [place] [address]; and cotton cleaner, Dr. Baugh, located at [address] [facility] [address], [place] [address]; . The choice of vendor form and multidisciplinary exit care form were done, printed, signed, and given to the patient.
[2020-11-12 10:00] VITALS: BP 128/71
[2020-11-12] MEDS: SERTRALINE HCL 50 MG TABLET PO SCH (10:00)
[2020-11-12] MEDS: LISINOPRIL (5MG) 5 MG TABLET PO SCH (10:00)
[2020-11-12] MEDS: ESCITALOPRAM OXALATE (10 MG) 10 MG TABLET PO SCH (10:01)
[2020-11-12] MEDS: METFORMIN 500 MG TABLET PO SCH (10:04)
--- NOTE | 2020-11-12 12:47 | NUR ---
REFUSED NOON TIME INSULIN COVERAGE.
--- NOTE | 2020-11-12 13:45 | NUR ---
pt. ready for discharge.all papers signed including belonging sheet.pt. denies suicidal,homicidal ideation.report to facility as well as drivers.transported via ambulance to facility.
== END 2020-11-12 13:45 | DRG 881 ==
LOC: GPS 19:38
PROVIDERS: ADMIT Psychiatry & Neurology Psychiatry; ATTEND Student in an Organized Health Care Education/Training Program
DX: F32.9 Major depressive disorder, single episode, unspecified (principal); E11.65 Type 2 diabetes mellitus with hyperglycemia; N39.0 Urinary tract infection, site not specified; R45.851 Suicidal ideations; G93.49 Other encephalopathy; F29 Unspecified psychosis not due to a substance or known physiological condition; F41.9 Anxiety disorder, unspecified; Z79.4 Long term (current) use of insulin; E11.649 Type 2 diabetes mellitus with hypoglycemia without coma; Z20.822 Contact with and (suspected) exposure to COVID-19
CPT/HCPCS: 36415; 80048-TC; 80053-TC; 80061-TC; 82962-TC; 84443-TC; 85025-TC; 87081-TC; J1815